=== PATIENT | male | born 1990 | race African-American/Black ===

== ENCOUNTER 2021-05-07 20:06 | Emergency (ER) | payer OTHER ==
[~2021-05-07] VITALS: Ht 177.8 cm; Wt 79.4 kg
[2021-05-07 20:13] VITALS: BP 123/86
--- NOTE | 2021-05-07 23:06 | NUR ---
PATIENT ELOPED FROM FACILITY. DISCHARGE INSTRUCTIONS NOT GIVEN TO PATIENT. DR. MCGRAW NOTIFIED.
== END 2021-05-07 23:06 | disposition left against medical advice (07) ==
LOC: MED 20:06
DX: U07.1 COVID-19 (principal); F10.129 Alcohol abuse with intoxication, unspecified; E11.9 Type 2 diabetes mellitus without complications; I10 Essential (primary) hypertension
CPT/HCPCS: 99282

== ENCOUNTER 2021-11-23 21:03 | Emergency (ER) | payer MEDICAID, OTHER ==
[~2021-11-23] VITALS: Ht 177.8 cm; Wt 81.6 kg
[2021-11-23 21:05] VITALS: BP 114/69
--- NOTE | 2021-11-23 21:17 | NUR ---
PT BIBA BLS ER BED 10
--- NOTE | 2021-11-23 21:18 | NUR ---
pt presents with raised area to rt side of forehead. pt states he fell. unaware if he loc.
[2021-11-23] MEDS ORDERED: NACL 0.9% 1,000 ML IV ONE (21:35)
--- NOTE | 2021-11-23 21:41 | NUR ---
lab at bedside.
--- NOTE | 2021-11-23 21:42 | NUR ---
31 yo m riana from [facility], per [facility] pt found by employees. pt was slumped on table. pt has strong odor of etoh. pt is a&o x1 to name, [id number]. negative stroke. [id number]. pt has a lump on rt side of f.a, pt states this is new. pt sustained fall, unsure if loc. unable to obtain hx, rx and allergies
[2021-11-23 21:52] LABS: BASOPHILS % (AUTO) 1.1 % (0.0-2.0); EOSINOPHILS # (AUTO) 0.1 K/uL (0-0.4); EOSINOPHILS % (AUTO) 2.7 % (0.0-4.0); HEMATOCRIT 34.7 % (36-52); HEMOGLOBIN 10.8 g/dL (12.0-18.0); LYMPHOCYTES # (AUTO) 1.5 K/uL (2.0-11.5); LYMPHOCYTES % (AUTO) 39.9 % (20.5-51.1); MEAN CORPUSCULAR HEMOGLOBIN 25 pg (27-31); MEAN CORPUSCULAR HGB CONC 31 g/dL (33-37); MEAN CORPUSCULAR VOLUME 78.9 fL (80-94); MONOCYTES # (AUTO) 0.3 K/uL (0.8-1.0); MONOCYTES % (AUTO) 7.2 % (1.7-9.3); NEUTROPHILS # (AUTO) 1.9 K/uL (1.8-7.7); NEUTROPHILS % (AUTO) 49.1 % (42.2-75.2); PLATELET COUNT (AUTO) 619 K/uL (140-450); RED CELL DISTRIBUTION WIDTH 24.8 % (11.6-13.7); WHITE BLOOD COUNT (AUTO) 3.8 K/uL (4.8-10.8)
[2021-11-23 22:07] LABS: ALBUMIN 3.9 g/dL (3.4-5.0); ANION GAP 22.3 (8-16); CARBON DIOXIDE 20.7 mmol/L (21-32); CREATININE 1.2 mg/dL (0.6-1.3); TOTAL BILIRUBIN 0.5 mg/dL (0.0-1.0)
--- NOTE | 2021-11-23 22:21 | NUR ---
PT TAKEN TO CT VIA [facility]
--- NOTE | 2021-11-24 06:01 | NUR ---
PT IS AWAKE AND TALKING. NO SLURRING AND ANSWERING QUESTIONS APPROPRIATELY
[2021-11-24 06:36] VITALS: BP 120/72
--- NOTE | 2021-11-24 06:36 | NUR ---
Patient discharged with v/s stable. Written and verbal after care instructions given and explained. Patient verbalized understanding. Ambulatory with steady gait. All questions addressed prior to discharge. Advised to follow up with PMD. A/OX4, VSS, AMBULATORY, UNLABORED BREATHING, AND CALM DEMEANOR.
== END 2021-11-24 06:36 | disposition home or self-care (01) ==
LOC: MED 21:03
DX: F10.129 Alcohol abuse with intoxication, unspecified (principal); Y90.9 Presence of alcohol in blood, level not specified
CPT/HCPCS: 36415; 70450; 80053; 83690; 85025; 96360; 99285; G0482; J7030